=== PATIENT | female | born 1960 | race Caucasian/White ===

== ENCOUNTER 2022-08-01 16:32 | Outpatient (CLI) | payer OTHER, SELFPAY ==
[2022-08-01 10:30] LABS: Chloride* 105 mmol/L (96-114); Sodium* 142 mmol/L (135-149)
[2022-08-01 10:33] LABS: Creatinine* 0.6 mg/dL (0.5-1.5); Estimated Glomerular Filt Rate 100 ml/min
[2022-08-01 10:34] LABS: Blood Urea Nitrogen* 18 mg/dL (7-30); Calcium* 9.4 mg/dL (8.4-10.6); Carbon Dioxide* 30 mmol/L (20-32); Glucose* 87 mg/dL (60-115)
[2022-08-04 13:14] LABS: Lab Add On Test New Spec Needed
[2022-08-06 15:40] LABS: Cholesterol* 207 mg/dL (90-199)
[2022-08-06 15:41] LABS: HDL Cholesterol* 48 mg/dL (>=50); LDL Cholesterol Calculated 137 mg/dL (<100); Triglycerides* 109 mg/dL (40-149)
== END 2022-08-01 16:33 | disposition home or self-care (01) ==
PROVIDERS: PCP Family Medicine; Visit Provider Family Medicine
DX: Z13.0 Encounter for screening for diseases of the blood and blood-forming organs and certain disorders involving the immune mechanism (principal); Z13.6 Encounter for screening for cardiovascular disorders
CPT/HCPCS: 80048; 80061

== ENCOUNTER 2023-05-08 14:58 | Outpatient (CLI) | payer OTHER, SELFPAY ==
--- NOTE | 2023-05-08 15:20 | CRLHL7_ITS ---
For Patients: As a result of the Century Cures Act, medical imaging exams and procedure reports are released immediately into your electronic medical record. You may view this report before your referring provider. If you have questions, please contact your health care provider. BILATERAL SCREENING MAMMOGRAM WITH COMPUTER-AIDED DETECTION AND TOMOSYNTHESIS TECHNIQUE: CC and MLO views were obtained. These mammographic images have been obtained using full-field digital technique. These mammographic images were interpreted with the benefit of computer-aided detection. Breast Tomosynthesis was used in this interpretation. COMPARISON FILM: 10/24/21, 12/08/19, 12/06/18. FINDINGS: The breasts are heterogeneously dense, which may obscure small masses IMPRESSION: There is no radiographic evidence for malignancy. ASSESSMENT: BI-RADS Category 1: Negative RECOMMENDATION: Routine screening mammogram in 1 year. A lay language report of this examination will be provided to the patient. Bairon Scott M.D. Diagnostic Radiologist [email or web address] LISSA/Dictated by: Bairon Scott MD @ 05/09/2023 1:27:00 PM (Electronically Signed)
== END 2023-05-08 14:59 | disposition home or self-care (01) ==
LOC: MAMMO 14:59
PROVIDERS: PCP Family Medicine; Visit Provider Family Medicine
DX: Z12.31 Encounter for screening mammogram for malignant neoplasm of breast (principal); R92.2 Inconclusive mammogram
CPT/HCPCS: 77063; 77067

== ENCOUNTER 2023-08-14 10:12 | Outpatient (CLI) | payer MEDICARE, BC, SELFPAY | END 2023-08-14 10:13 | disposition home or self-care (01) | LOC: NFLDREF 13:13 | PROVIDERS: PCP Family Medicine; Referring Provider Family Medicine; Visit Provider Family Medicine | DX: R53.83 Other fatigue (principal); I10 Essential (primary) hypertension; E78.5 Hyperlipidemia, unspecified; Z13.0 Encounter for screening for diseases of the blood and blood-forming organs and certain disorders involving the immune mechanism | CPT/HCPCS: 80048; 80061 ==

== ENCOUNTER 2023-08-15 10:42 | Outpatient (CLI) | payer MEDICARE, BC, SELFPAY | END 2023-08-15 10:43 | disposition home or self-care (01) | LOC: NFLDREF 10:43 | PROVIDERS: PCP Family Medicine; Visit Provider Obstetrics & Gynecology | DX: R35.0 Frequency of micturition (principal) | CPT/HCPCS: 87086 ==

== ENCOUNTER 2023-09-14 11:06 | Emergency (ER) | payer MEDICARE, BC, SELFPAY ==
[2023-09-14 11:13] VITALS: BP 192/103; PULSE 77; RESP 18; TEMP 37.1; O2SAT 100; BMI 17.8
--- NOTE | 2023-09-14 11:23 | CRLHL7_ITS ---
For Patients: As a result of the Century Cures Act, medical imaging exams and procedure reports are released immediately into your electronic medical record. You may view this report before your referring provider. If you have questions, please contact your health care provider. Indication: Bruising and swelling. Technique: Four views of the right knee. Comparison: None Findings/Impression: No acute fracture or dislocation. Prepatellar soft tissue swelling is present. No significant joint effusion. Mild edema within the infrapatellar fat pad. Slight lateral patellar tilt. Dictated by Dario Mckeon MD @ 09/14/2023 12:09:33 PM (Electronically Signed)
--- NOTE | 2023-09-14 11:30 | ED.LOWEXIN ---
HPI - Extremity Injury (Lower) General Date Seen: 09/14/23 Chief Complaint: Extremity Pain/Injury, Lower Stated Complaint: R knee swelling, short of breath Time Seen by Provider: 09/14/23 11:18 Source: patient Mode of arrival: ambulatory Limitations: no limitations History of Present Illness HPI Narrative: Patient is a 63-year-old female with presenting to emergency department for swelling to her right knee. She states shortly prior to arrival she was standing in front of him your doing her makeup when she felt a weird sensation in her leg that went up to her knee. She then noticed her right knee was swollen and bruised. She has been able to walk around and the area is mildly tender to palpation but otherwise she no other pain noted. She has never had anything like this before denies any injuries to the knee. She is unsure what occurred. She does state when it 1st started she is feeling short of breath but that has since resolved. She states she believes the shortness of breath was from anxiety. Does states her right foot feels slightly numb but her toes and ankle feel normal. No other concerns noted at this time Related Data Home Medications Medication Instructions Recorded Confirmed calcium citrate 315 mg 2 tab PO .Daily as needed PRN 08/08/22 09/12/23 calcium-vitamin D3 6.25 mcg (250 unit) tablet cholecalciferol (vitamin D3) 25 100 mcg PO DAILY 08/08/22 09/12/23 mcg (1,000 unit) tablet Previous Rx's Medication Instructions Recorded atenolol 50 mg tablet 50 mg PO DAILY #90 tabs 08/08/23 nitrofurantoin macrocrystal 100 mg 100 mg PO BID #20 caps 08/08/23 capsule estradiol 0.01% (0.1 mg/gram) 0.5 g vaginal 2XW #42.5 grams 08/15/23 vaginal cream (Estrace) halobetasol propionate 0.05 % 1 applic topical .hs #15 grams 08/15/23 topical ointment Allergies Allergy/AdvReac Type Severity Reaction Status Date / Time amoxicillin Allergy Mild Hives Verified 09/12/23 08:02 erythromycin base Allergy Mild Hives Verified 09/12/23 08:02 Penicillins Allergy Mild Gastrointestinal Verified 09/12/23 08:02 Upset Tetracyclines Allergy Unknown Hives Verified 09/12/23 08:02 Sulfa drugs Allergy Mild Hives Uncoded 09/12/23 08:02 Review of Systems Narrative: Pertinent system reviewed and negative unless stated in HPI PFSH PFS Medical History (Updated 09/14/23 @ 14:09 by Mendoza David DO) History of peptic ulcer disease ?Z87.11 - Personal history of peptic ulcer disease (ICD-10) Surgical History (Updated 08/19/23 @ 15:57 by Deedee Galo MD) S/P shoulder surgery ?Z98.890 - Other specified postprocedural states (ICD-10) Status post appendectomy ?Z90.49 - Acquired absence of other specified parts of digestive tract (ICD-10) Status post ?Z98.891 - History of uterine scar from previous surgery (ICD-10) Family History (Updated 08/19/23 @ 15:57 by Deedee Galo MD) Other ASCVD (arteriosclerotic cardiovascular disease) Colon cancer Diabetes Heart disease High blood pressure High cholesterol Social History Smoking Status: Never smoker Little interest or pleasure in doing things: not at all Feeling down, depressed, or hopeless: not at all Exam Narrative: Exam Narrative: Const: Well-nourished, Well-developed, in mild distress Eyes: PERRL, no conjunctival injection, and symmetrical lids HENT: Atraumatic external nose and ears. Moist mucous membranes. Neck: Symmetric, trachea midline, No thyromegaly. CVS: RRR, No murmurs or gallops. Peripheral pulses 2+ and equal in all extremities RESP: Unlabored respiratory effort. Clear to auscultation bilaterally. GI: Nontender/Nondistended, No rebound or guarding. MSK: Swelling and bruising noted to right knee with mild tenderness, Normal Active ROM Skin: Warm, Dry. No rashes or lesions. Neuro: Normal Muscle tone, No focal neurological deficits. Psych: Awake, Alert, & Oriented x3. Appropriate mood and affect. Const: Vital Signs, click to edit/add: Vital Signs - 24 hr 09/14/23 11:13 Temperature 98.7 F Pulse Rate [Right Pulse Oximeter] 77 Respiratory Rate 18 Blood Pressure [Ri ght Upper Arm] 192/103 H Pulse Oximetry 100 Oxygen Delivery Me thod Room Air Course Vital Signs Vital signs: Initial Vital Signs Temperature 98.7 F 09/14/23 11:13 Temperature Source Temporal Artery Scan 09/14/23 11:13 Pulse Rate 77 09/14/23 11:13 Respiratory Rate 18 09/14/23 11:13 Blood Pressure 192/103 H 09/14/23 11:13 Blood Pressure Mean 132 H 09/14/23 11:13 Blood Pressure Position Sitting 09/14/23 11:13 Pulse Oximetry 100 09/14/23 11:13 Oxygen Delivery Method Room Air 09/14/23 11:13 Vital Signs Temperature 98.7 F 09/14/23 11:13 Pulse Rate 77 09/14/23 11:13 Respiratory Rate 18 09/14/23 11:13 Blood Pressure 192/103 H 09/14/23 11:13 Pulse Oximetry 100 09/14/23 11:13 Oxygen Delivery Method Room Air 09/14/23 11:13 Temperature 98.7 F 09/14/23 11:13 Pulse Rate 77 09/14/23 11:13 Respiratory Rate 18 09/14/23 11:13 Blood Pressure 192/103 H 09/14/23 11:13 Pulse Oximetry 100 09/14/23 11:13 Oxygen Delivery Method Room Air 09/14/23 11:13 MDM - Extremity Injury (Lower) MDM Narrative Medical decision making narrative: Patient is a 63-year-old female presenting for right knee swelling. Happened suddenly and she does not remember any trauma to the knee. She has full range of motion very minimal pain. Only has tenderness when I push on the distal aspect of the patella. At this time I do not believe she has a torn tendon. She has full range of motion so that seems unlikely. We will do x-ray of the knee which came back showing no concerning abnormalities. She was adamant that she is concerned this could be a blood clot and while explained her is very unlikely we will do the ultrasound to confirm. Ultrasound returned showing no signs of a blood clot. At this time I am not sure what caused this swelling but also does not appear infectious in nature as it is cool to the touch and not warm. She will be discharged home informed follow-up with orthopedics. She is agreeable to this plan Imaging Data Knee x-ray right: Radiologist's impression: No acute fracture or dislocation. Prepatellar soft tissue swelling is present. No significant joint effusion. Mild edema within the infrapatellar fat pad. Slight lateral patellar tilt. Dictated by Dario Mckeon MD @ 09/14/2023 12:09:33 PM Right lower extremity venous ultrasound: Radiologist's impression: Normal right lower extremity venous ultrasound, no sign of deep venous thrombosis. Dictated by Nathan Gutierres MD @ 09/14/2023 2:01:14 PM Discharge Plan Discharge Clinical Impression: Knee swelling Patient Disposition: Home, Self-Care Condition: Stable Instructions: Swollen Knee Joint (ED) Additional Instructions: If you develop any pain take Tylenol and ibuprofen. Return to emergency department for new or worsening symptoms. If you continues to have concerns I do recommend orthopedic follow-up. Prescriptions: No Action atenolol 50 mg tablet 50 mg PO DAILY Qty: 90 3RF nitrofurantoin macrocrystal 100 mg capsule 100 mg PO BID Qty: 20 2RF Rx Instructions: must administer with a meal/food calcium citrate-vitamin D3 315 mg-6.25 mcg (250 unit) tablet 2 tab PO .Daily as needed PRN cholecalciferol (vitamin D3) 25 mcg (1,000 unit) tablet 100 mcg PO DAILY halobetasol propionate 0.05 % ointment 1 applic topical .hs Qty: 15 1RF estradiol [Estrace] 0.01 % (0.1 mg/gram) cream 0.5 g vaginal 2XW Qty: 42.5 3RF Rx Instructions: Use nightly for 2 weeks, then twice weekly. May apply with finger. Follow Up/Referrals: Akshat Henning MD [Primary Care Provider] - Stand Alone Forms: [facility] Info Instructions
--- OUTSIDE RECORDS SUMMARY | 2023-09-14 11:44 | XMS_ITS | Encounter Summary ---
Author Name Unknown Organization [place] Address [address] [place] [address] Care Team Providers Care Driver Operator Name Role Phone Yogesh Ovalle MD Unavailable [phone] Marquis Henning MD Primary Care Provider [phone] Yogesh Ovalle MD Unavailable Reason for Visit * Reason Comments FU Cardiac testing 1 month follow-up, d iscuss test results * Consultation (Routine: Next available opening) - Pending Review Specialty Diagnoses / Procedures Referred By Jameson barrow Referred To Contact Cardiovascular Disease Diagnoses Coronary artery disease involving confederated coos coronary artery of confederated coos heart with other form of angina pectoris (H24) Family history of ischemic heart disease Yogesh Ovalle MD [address] [id number] Referral ID Status Reason Start Date Expiration Date V isits Requested Visits Authorized [id number] Pending Review 10/19/2022 10/19/2023 1 1 Encounter Details Date Type Department Care Team (Latest Contact Info) Description 11/20/2022 12:15 PM CDT Office Visit [facility] [address] [facility] [address] [place] [address] Yogesh Ovalle MD [address] [address] Mixed hyperlipidemia (Primary Dx); Coronary artery disease involving confederated coos coronary artery of confederated coos heart without angina pectoris; Family history of ischemic heart disease; Essential hypertension Social History Tobacco Use Types Packs/Day Years Used Date Smoking Tobacco: Never Tobacco Cessation:Counseling Given: Not Answered Alcohol Use Standard Drinks/Week Comments Not Currently 0 (1 standard drink = 0.6 oz pur e alcohol) PHQ-2 Answer Date Recorded PHQ-2 Score 0 10/19/2022 Sex and Gender Information Value Date Recorded Sex Assigned at Not on file Gender Identity Not on file Sexual Orientation Not on file COVID-19 Exposure Response Date Recorded In the last 10 days, have yo u been in contact with someone who was confirmed or suspected to have Coronavirus/COVID-19? No / Unsure 11/20/2022 12:37 PM CDT documented as of this encounter Last Filed Vital Signs Vital Sign Reading Time Taken Comments Blood Pressure 120/88 11/20/2022 12:38 PM CDT Pulse 55 11/20/2022 12:38 PM CDT Temperature - - Respiratory Rate - - Oxygen Saturation 98% 11/20/2022 12:38 PM CDT Inhaled Oxygen Concentration - - Weight - - Height 165.1 cm (5' 5) 11/20/2022 12:38 PM CDT Body Mass Index - - documented in this encounter Progress Notes * Yogesh Ovalle MD - 11/20/2022 12:15 PM CDT CARDIOLOGY CLINIC FOLLOW-UP NOTE REASON FOR VISIT: Chest pain, family history of CAD/CHF, follow-up recent testing PRIMARY CARE PHYSICIAN: Marquis Henning History of Present Illness Nichol Lowe is an extremely pleasant 62 year old female here for follow- up of her recent testing. I also see several of her other family members in clinic. Her past medical history is significant for only mild hypertension and dyslipidemia, though for many years she has struggled with paroxysmal nonexertional chest pain. Her family history is significant for her father having a heart attack at age 40 and undergoing multivessel CABG at age 45, as well as both of her paternal grandparents having heart disease. In addition, her younger brother was diagnosed with heart failure (apparently nonischemic) in his early 60s. Patient is a never smoker, though her relatives with heart disease were also not smokers. Patient does not drink alcohol or use illicit drugs. She is very active throughout the day and also exercises on the treadmill for 20-30 minutes most days of the week. As she described at her first visit, symptomatically, her biggest issue is left- sided chest discomfort which is generally not exertional in nature. The frequency of the chest pain waxes and wanes, going back several decades. Sometimes it gets so severe that she wonders if she should go into the hospital. She saw her primary care physician in August 2022 and at that time her lipid panel was slightly worse than before, and it was recommended that she start Crestor 5 mg daily. However, patient reported that she deals with chronic aches and pains particularly in her joints anyways, and she was worried about the potential side effects, so she had not started this yet. For work-up of her symptoms, and also given her family history, I had her do a TTE and coronary CTA. The TTE was done on 11/16/2022, and thankfully was essentially entirely normal. Her CCTA from 10/31/2022 showed a total calcium score of 3.32 (57th percentile for age and gender), with only very mild n onobstructive CAD and normal aortic size. Her most recent outside labs are from 08/01/2022, and show a hemoglobin of 12.8, normal electrolytes, normal renal function, total cholesterol 207, HDL 48, LDL 137, and triglycerides 109. Assessment & Plan 1. Atypical, primarily nonexertional chest pain: Noncardiac in nature 2. Trivial nonobstructive CAD (CAC = 3 in 10/2022, 10-year CHD risk of 3.9%) 3. Hypertension, well controlled 4. Mild dyslipidemia 5. Family history of premature CAD 6. Family history of nonischemic cardiomyopathy It was a pleasure to meet with Nichol again in clinic today. We discussed the results of her recent testing, which thankfully is very reassuring. Given this, I think it is reasonable to conclude that her current nonexertional symptoms are not related to her heart. In addition, despite her family history of both premature CAD and nonischemic cardiomyopathy, we do not see significant evidence of either condition on her recent testing. We did talk about the importance of prevention, particularly inregards to her coronary disease, and the potential role of aspirin and/or statin therapy. Using theMESA CAC 10-year risk prediction model, her calculated 10-year risk of CHD is 3.9%. Based on this, we talked about pros/cons of both aspirin and statin. Given that she has had severe difficulty tolerating even baby aspirin in the past from a GI standpoint, I would not recommend starting aspirin at this time. If her disease worsens in the future, we could perhaps consider Plavix monotherapy, but Iwould hold off on this for now. In regards to statin therapy, we talked about this in detail, and ultimately I recommended that she needs to do what she feels most comfortable with. Statin therapy would likely reduce her risk of coronary and cerebrovascular disease slightly over the next 10 years. That said, her 10-year risk is already fairly low despite her family history, and she is already deal ing with numerous aches and pains and has a hard time tolerating medication. Accordingly, I do not feel overly strongly that she needs to start a statin at this time. If she did wish to start one to minimize her risk is much as possible, I think that a low-dose of statin such as the 5 mg of Crestordaily as was recommended by her PCP would be a good choice, but again I would want her to feel comfortable with this decision as I think if she goes into this worried about side effects, it will increase her risk of in fact having those side effects. As for follow-up, I do not think that she requires any routine cardiology follow-up at this time, though I think that a repeat coronary calcium scanin roughly 5 years would probably be a good idea. On the date of the patient's visit, I spent a total of 45 minutes reviewing the patient's chart; interviewing, examining, and counseling the patient; coordinating with other providers as necessary, entering orders, and documenting in the medical chart. Yogesh Ovalle MD Interventional Cardiology November 20, 2022 Medications Current Outpatient Medications Medication ??? Ascorbic Acid (VITAMIN C PO) ??? atenolol (TENORMIN) 50 MG tablet ??? GZLIWLK-[id number]-[id number] D PO ??? cholecalciferol (VITAMIN D3) 25 mcg (1000 units) capsule ??? Fish Oil-Cholecalciferol (FISH OIL + D3 PO) ??? Lactobacillus (PROBIOTIC ACIDOPHILUS PO) ??? multivitamin w/minerals (THERA-VIT-M) tablet No current facility-administered medications for this visit. Allergies Allergies Allergen Reactions ??? Amoxicillin PCN is ok ??? Erythromycin ??? Sulfa Drugs ??? Ranitidine Rash Physical Exam BP: 120/88 Pulse: 55 SpO2: 98 % Vital Signs with Ranges Pulse: [55] 55 BP: (120)/(88) 120/88 SpO2: [98 %] 98 % 0 lbs 0 oz Constitutional: Well-appearing, no acute distress Respiratory: Normal respiratory effort, CTAB Cardiovascular: RRR, no m/r/g. JVP < 7 cm H2O. There is no LE edema. Normal carotid upstrokes, no carotid bruits. documented in this encounter Plan of Treatment Not on file documented as of this encounter Visit Diagnoses Diagnosis Mixed hyperlipidemia- Primary Coronary artery disease involving confederated coos coronary artery of confederated coos heart without angina pectoris Family history of ischemic heart disease Essential hypertension Unspecified essential hypertension documented in this encounter Additional Health Concerns Assessment Noted Time PHQ-9 Depression Total Score: 0 07/14/20 16 7:17 AM INTERACTIVE MEDIA DESIGNER documented as of this encounter Care Teams Driver Operator Relationship Specialty Start Date End Date Marquis Henning MD [facility] [address] [place] [address] PCP - General Family Medicine 10/03/22 Yogesh Ovalle MD [address] [address] Cardiovascular Disease 10/03/22 Yogesh Ovalle MD [address] [address] Assigned Heart and Vascular Provider 10/21/22 documented as of this encounter
--- OUTSIDE RECORDS SUMMARY | 2023-09-14 11:44 | XMS_ITS | Referral Summary ---
Author Name Unknown Organization [place] Address [address] [place] [address] Care Team Providers Care Field Geologist Name Role Phone Yogesh Ovalle MD Unavailable [phone] Marquis Henning MD Primary Care Provider Yogesh Ovalle MD Unavailable [phone] Allergies Active Allergy Reactions Criticality Noted Date Comments Amoxicillin 07/13/2016 PCN is ok Erythromycin 07/13/2016 Ranitidine Rash Low 07/13/2016 Sulfa Antibiotics 07/13/2016 Medications Medication Sig Dispensed Refills Start Date End Date Status atenolol (TENORMIN) 50 MG tablet Take 50 mg by mouth 0 05/24/2016 Active CREZXRW-ZAOFQRAMI-USZT MIN D PO 0 Active Ascorbic Acid (VITAMIN C PO) Only takes when taking Calcium/mg/vit D 0 Active Fish Oil-Cholecalciferol (FISH OIL + D3 PO) Once in a while 0 A ctive multivitamin w/minerals (THERA-VIT-M) tablet Take 1 tablet by mouth daily Every few days 0 Active cholecalciferol (VITAMIN D3) 25 mcg (1000 units) capsule Take 1 capsule by mouth daily 0 Active Lactobacillus (PROBIOTIC ACIDOPHILUS PO) 0 Active Active Problems No known active problems Social History Tobacco Use Types Packs/Day Years Used Date Smoking Tobacco: Never Tobacco Cessation:Counseling Given: Not Answered Alcohol Use Standard Drinks/Week Comments Not Currently 0 (1 standard drink = 0.6 oz pur e alcohol) PHQ-2 Answer Date Recorded PHQ-2 Score 0 10/19/2022 Adolescent Education Answer Date Record ed Getting School Help Needed Not on file 06/09 Sex and Gender Information Value Date Recorded Sex Assigned at Not on file Gender Identity Not on file Sexual Orientation Not on file Last Filed Vital Signs Vital Sign Reading Time Taken Comments Blood Pressure 120/88 11/20/2022 12:38 PM CDT Pulse 55 11/20/2022 12:38 PM CDT Temperature - - Respiratory Rate - - Oxygen Saturation 98% 11/20/2022 12:38 PM CDT Inhaled Oxygen Concentration - - Weight 49.7 kg (109 lb 9.6 oz) 10/19/2022 11:05 AM PROPERTY UNDERWRITER Height 165.1 cm (5' 5) 11/20/2022 12:38 PM CDT Body Mass Index 18.24 10/19/2022 11:05 AM PROPERTY UNDERWRITER Plan of Treatment Not on file Care Teams Field Geologist Relationship Specialty Start Date End Date Marquis Henning MD [facility] [address] [place] [address] PCP - General Family Medicine 10/03/22 Yogesh Ovalle MD [address] [address] Cardiovascular Disease 10/03/22 Yogesh Ovalle MD [address] [id number] Assigned Heart and Vascular Provider 10/21/22
--- OUTSIDE RECORDS SUMMARY | 2023-09-14 11:44 | XMS_ITS | Encounter Summary ---
Author Name Unknown Organization [place] Address [address] [place] [address] Care Team Providers Care General Forecaster Name Role Phone Yogesh Ovalle MD Unavailable [phone] Marquis Henning MD Primary Care Provider [phone] Yogesh Ovalle MD Unavailable [phone] Encounter Details Date Type Department Care Team (Latest Contact Info) Description 11/16/2022 Travel Social History Tobacco Use Types Packs/Day Years Used Date Smoking Tobacco: Never Alcohol Use Standard Drinks/Week Comments Not Currently [...] suspected to have Coronavirus/COVID-19? No / Unsure 11/16/2022 7:21 AM CDT documented as of this encounter Plan of Treatment Not on file documented as of this encounter Visit Diagnoses Not on filedocumented in this encounter Additional Health Concerns Assessment Noted Time PHQ-9 Depression Total Score: 0 07/14/20 16 7:17 AM CLINICAL LABORATORY MEDICAL DIRECTOR documented as of this encounter Care Teams General Forecaster Relationship Specialty Start Date End Date Marquis Henning MD [facility] [address] [place] [address] PCP - General Family Medicine 10/03/22 Yogesh Ovalle MD [address] [address] Cardiovascular Disease 10/03/22 Yogesh Ovalle MD [address] [address] Assigned Heart and Vascular Provider 10/21/22 documented as of this encounter
--- OUTSIDE RECORDS SUMMARY | 2023-09-14 11:44 | XMS_ITS | Clinical Summary ---
Author Name Unknown Organization [facility] Address [address] [place] [address] Care Team Providers Care Instrument Repairer Helper Name Role Phone Yogesh Ovalle MD Unavailable [phone] Marquis Henning MD Primary Care Provider [phone] Yogesh Ovalle MD Unavailable [phone] Allergies Active Allergy Reactions Criticality Noted Date Comments Amoxicillin 07/13/2016 PCN is ok Erythromycin 07/13/2016 Ranitidine Rash Low 07/13/2016 Sulfa Antibiotics 07/13/2016 Medications Medication Sig Dispensed Refills Start Date End Date Status atenolol (TENORMIN) 50 MG tablet Take 50 mg by mouth 0 05/24/2016 Active ZXFENEK-[id number]-ENHF MIN D PO 0 Active Ascorbic Acid [...] Active Active Problems No known active problems Family History Medical History Relation Comments Diabetes Brother Hypertension Father Breast Cancer Maternal Aunt Colon Cancer Maternal Aunt Diabetes Maternal Aunt Diabetes Mother Hypertension Mother Colon Cancer Sister Diabetes Sister Relation Status Comments Brother Father Maternal Aunt Mother Sister Social History Tobacco Use Types Packs/Day Years [...] (109 lb 9.6 oz) 10/19/2022 11:05 AM DIGITAL ACCOUNT SUPERVISOR Height 165.1 cm (5' 5) 11/20/2022 12:38 PM CDT Body Mass Index 18.24 10/19/2022 11:05 AM DIGITAL ACCOUNT SUPERVISOR Plan of Treatment Health Maintenance Due Date Last Done Comments ADVANCE CARE PLANNING 1960 ANNUAL REVIEW OF HM ORDERS 1958 CT COLONOGRAPHY 1958 DEXA 1958 FIT 1958 FLEX SIG 1958 sDNA (Cologuard) 1958 Pneumococcal Vaccine: 65+ Years (1 of 2 - PCV) 1964 HIV SCREENING 1973 HEPATITIS C SCREENING 1976 ZOSTER IMMUNIZATION (1 of 2) 2008 MAMMO SCREENING 09/03/2016 09/03/2014 RSV VACCINE ( & 60+) (1 - 1-dose 60+ series) 2018 DTAP/TDAP/TD IMMUNIZATION (1 - Tdap) 08/09/2022 08/08/2022 COVID-19 Vaccine (3 - 2022- season) 2023 07/06/2021, 11/08/2020 INFLUENZA VACCINE (#1) 2023 FALL RISK ASSESSMENT 2023 MEDICARE ANNUAL WELLNESS VISIT 2023 07/13/2016 PHQ-2 (once per calendar year) 2023 10/19/2022, 07/13/2016 COLONOSCOPY 07/04/2026 07/04/2016 COLORECTAL CANCER SCREENING 07/04/2026 LIPID 08/01/2027 08/01/2022 PAP Discontinued 07/13/2016, 09/03/2013 HPV IMMUNIZATION Aged Out No longer e ligible based on patient's age to complete this topic IPV IMMUNIZATION Aged Out No longer e ligible based on patient's age to complete this topic MENINGITIS IMMUNIZATION Aged Out No l onger eligible based on patient's age to complete this topic RSV MONOCLONAL ANTIBODY Aged Out No l onger eligible based on patient's age to complete this topic Care Teams Instrument Repairer Helper Relationship Specialty Start Date End Date Marquis Henning MD [facility] [address] [place] [address] PCP - General Family Medicine 10/03/22 Yogesh Ovalle MD [address] [id number] Cardiovascular Disease 10/03/22 Yogesh Ovalle MD [address] [address] Assigned Heart and Vascular Provider 10/21/22
--- OUTSIDE RECORDS SUMMARY | 2023-09-14 11:44 | XMS_ITS | Encounter Summary ---
Author Name Unknown Organization [place] Address [address] [place] [address] Care Team Providers Care Play Back Operator Name Role Phone Yogesh Ovalle MD Unavailable [phone] Marquis Henning MD Primary Care Provider [phone] Yogesh Ovalle MD Unavailable [phone] Encounter Details Date Type Department Care Team (Latest Contact Info) Description 11/20/2022 Travel Social History Tobacco Use Types Packs/Day [...] PM CDT documented as of this encounter Plan of Treatment Not on file documented as of this encounter Visit Diagnoses Not on filedocumented in this encounter Additional Health Concerns Assessment Noted Time PHQ-9 Depression Total Score: 0 07/14/20 16 7:17 AM NAME PLATE STAMPER documented as of this encounter Care Teams Play Back Operator Relationship Specialty Start Date End Date Marquis Henning MD [facility] [address] [place] [address] PCP - General Family Medicine 10/03/22 Yogesh Ovalle MD [address] [address] Cardiovascular Disease 10/03/22 Yogesh Ovalle MD [address] [address] Assigned Heart and Vascular Provider 10/21/22 documented as of this encounter
--- OUTSIDE RECORDS SUMMARY | 2023-09-14 11:45 | XMS_ITS | Encounter Summary ---
Author Name Unknown Organization [facility] Address [address] [place] [address] Care Team Providers Care Registered Associate Name Role Phone Yogesh Ovalle MD Unavailable [phone] Marquis Henning MD Primary Care Provider [phone] Yogesh Ovalle MD Unavailable [phone] Encounter Details Date Type Department Care Team (Latest Contact Info) Description 10/31/2022 Travel Social History Tobacco Use Types Packs/Day [...] suspected to have Coronavirus/COVID-19? No / Unsure 10/31/2022 9:57 AM SOLE ROUNDER documented as of this encounter Plan of Treatment Not on file documented as of this encounter Visit Diagnoses Not on filedocumented in this encounter Additional Health Concerns Assessment Noted Time PHQ-9 Depression Total Score: 0 07/14/20 16 7:17 AM SOLE ROUNDER documented as of this encounter Care Teams Registered Associate Relationship Specialty Start Date End Date Marquis Henning MD [facility] [address] [place] [address] PCP - General Family Medicine 10/03/22 Yogesh Ovalle MD [address] [address] Cardiovascular Disease 10/03/22 Yogesh Ovalle MD [address] [address] Assigned Heart and Vascular Provider 10/21/22 documented as of this encounter
--- OUTSIDE RECORDS SUMMARY | 2023-09-14 11:45 | XMS_ITS | Encounter Summary ---
Author Name Unknown Organization [facility] Address [address] [place] [address] Care Team Providers Care Buck Presser Name Role Phone Yogesh Ovalle MD Unavailable [phone] Marquis Henning MD Primary Care Provider [phone] Yogesh Ovalle MD Unavailable Reason for Referral * Diagnostic Imaging XR (Routine) - Pending Review Specialty Diagnoses / Procedures Referred By Jameson barrow Referred To Contact Radiology. 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) Family history of ischemic heart disease Procedures CTA Angiogram coronary artery Yogesh Ovalle MD [address] [address] Referral ID Status Reason Start Date Expiration Date Visits Re quested Visits Authorized [id number] Closed 10/19/2022 10/19/2023 1 1 Encounter Details Date Type Department Care Team (Latest Contact Info) Description 10/31/2022 9:57 AM MILL SET UP - 10/31/2022 11:59 PM MILL SET UP Hospital Encounter [facility] [address] [place] [id number] Yogesh Ovalle MD [address] [address] Coronary artery disease involving [place] coronary artery of [place] heart with other form of angina pectoris (H); Family history of ischemic heart disease Discharge Disposition: Home or Self Care Social History Tobacco Use Types Packs/Day Years [...] Coronavirus/COVID-19? No / Unsure 10/31/2022 9:57 AM MILL SET UP documented as of this encounter Last Filed Vital Signs Vital Sign Reading Time Taken Comments Blood Pressure 177/92 10/31/2022 10:05 AM MILL SET UP Pulse 57 10/31/2022 10:05 AM MILL SET UP Temperature - - Respiratory Rate - - Oxygen Saturation - - Inhaled Oxygen Concentration - - Weight - - Height - - Body Mass Index - - documented in this encounter Medications at Time of Discharge Medication Sig Dispensed Refills Start Date End Date Ascorbic Acid (VITAMIN C PO) Only takes when taking Calcium/mg/vit D 0 atenolol (TENORMIN) 50 MG tablet Take 50 mg by mouth 0 05/24/2016 ELCRBWK-[id number]-OJZEANL D PO 0 cholecalciferol (VITAMIN D3) 25 mcg (1000 units) capsule Take 1 capsule by mouth daily 0 Fish Oil-Cholecalciferol (FISH OIL + D3 PO) Once in a while 0 Lactobacillus (PROBIOTIC ACIDOPHILUS PO) 0 multivitamin w/minerals (THERA-VIT-M) tablet Take 1 tablet by mouth daily Every few days 0 documented as of this encounter Plan of Treatment Scheduled Orders Name Type Priority Associated Diagnoses Orde r Schedule EKG 12-lead, tracing only EKG STAT One Time for 1 O ccurrences starting 10/31/2022 until 10/31/2022 documented as of this encounter Procedures Procedure Name Priority Date/Time Associated Diagnosis Comments CTA ANGIOGRAM CORONARY ARTERY Routine 10/31/2022 12:37 PM MILL SET UP Coronary artery disease involving [place] coronary artery of [place] heart with other form of angina pectoris (H) Family history of ischemic heart disease RADIOLOGIST CONSULT FOR CARDIOLOGY Routine 10/31/2022 12:37 PM MILL SET UP Coronary artery disease involving [place] coronary artery of [place] heart with other form of angina pectoris (H) Family history of ischemic heart disease documented in this encounter Results * Radiologist Consult For Cardiology (10/31/2022 12:37 PM MILL SET UP) Anatomical Region Laterality Modality Computed Tomogra phy Impressions 10/31/2022 3:52 PM MILL SET UP IMPRESSION: No significant extracardiac findings. ANTIONE MORTON MD Narrative 10/31/2022 3:52 PM MILL SET UP RADIOLOGIST CONSULT FOR CARDIOLOGY 10/31/2022 12:37 PM HISTORY: Coronary artery disease involving [place] coronary artery of [place] heart with other form of angina pectoris (H); Family history of ischemic heart disease. COMPARISON: None. Procedure Note Antione Morton MD - 10/31/2022 RADIOLOGIST CONSULT FOR CARDIOLOGY 10/31/2022 12:37 PM HISTORY: Coronary artery disease involving [place] coronary artery of [place] heart with other form of angina pectoris (H); Family history of ischemic heart disease. COMPARISON: None. IMPRESSION: No significant extracardiac findings. ANTIONE MORTON MD Yogesh Ovalle MD IM DIAGNOSTIC IMAGING ORDERABLES * CTA Angiogram coronary artery (10/31/2022 12:37 PM MILL SET UP) Anatomical Region Laterality Modality Cardio, SUBRAD CT BODY, UMP CT CHEST, RAD CT Computed Tomography Impressions 10/31/2022 2:32 PM MILL SET UP IMPRESSION: 1. Total Agatston score 3.32, placing the patient in the 57th percentile when compared to age and gender matched control group. 2. Very mild nonobstructive coronary artery disease 3. ??Please review Radiology report for incidental noncardiac findings that will follow separately. FINDINGS: CORONARY CALCIUM SCORE: The total Agatston calcium score is 3.32, Left main: 0, left anterior descendin.32, ??circumflex: 0, right coronary artery: 0. This places the patient in the 57th percentile when compared to age and gender matched control group. CORONARY CT ANGIOGRAPHY DOMINANCE: Right dominant system. LEFT MAIN: The left main arises normally from the left coronary cusp and is widely patent without any stenosis or plaque. LEFT ANTERIOR DESCENDING: . A small vessel, The left anterior descending and its major diagonal branches are patent. There is mild calcification mid vessel CIRCUMFLEX: Small vessel, The circumflex and its major branches are widely patent without any detectable stenosis or plaque. RIGHT CORONARY ARTERY: Large vessel, The right coronary artery and its major branches are widely patent without any detectable stenosis or plaque. ADDITIONAL FINDINGS: The proximal ascending aorta is normal in size. Normal pulmonary venous anatomy with all four pulmonary veins draining into the left atrium. ?? There is no left ventricular mass or thrombus. Normal pericardial thickness. There is no pericardial effusion. The proximal pulmonary arteries are well opacified. Please review Radiology report for incidental noncardiac findings that will follow separately. REGINALDO BUSBY MD Narrative 10/31/2022 2:32 PM MILL SET UP Procedure: CT ANGIO CORONARY ARTERY Examination Date: Indication: ??Chest pain. Clinical Information: chest pain, abnormal stress echo Ordering Physician: Dr Joe Ovalle Overall quality of the study: Adequate. PROCEDURE:The patient was positioned in the scanner gantry and an IV was started using an 18 gauge IV in the right antecubital fossa. Utilizing 100 cc ??Isovue 370, wasted 0 cc, multi-slice computed tomography was performed with a Siemens Dual Source Flash scanner without incident. Beta-blockers were required to optimize heart rate, patient was given Metoprolol 0 mg Oral, Metoprolol 0 mg ??IV. The patient was given pre-medication of sublingual Nitrostat 0.4 mg prior to scanning. Coronary artery calcium score was performed using the Flash scanner protocol. CTA was performed in the sequential mode at a heart rate of 65 bpm with 100 kVp. Images were reconstructed and analyzed on a [email or web address] workstation. Scan protocol was optimized to minimize radiation exposure. The total radiation exposure including calcium score was calculated to be 74 DLP, and 1.48 mSv. Procedure Note Reginaldo Busby MD - 10/31/2022 Procedure: CT ANGIO CORONARY ARTERY Examination Date: Indication: Chest pain. Clinical Information: chest pain, abnormal stress echo Ordering Physician: Dr Joe Ovalle Overall quality of the study: Adequate. PROCEDURE:The patient was positioned in the scanner gantry and an IV was started using an 18 gauge IV in the right antecubital fossa. Utilizing 100 cc Isovue 370, wasted 0 cc, multi-slice computed tomography was performed with a Siemens Dual Source Flash scanner without incident. Beta-blockers were required to optimize heart rate, patient was given Metoprolol 0 mg Oral, Metoprolol 0 mg IV. The patient was given pre-medication of sublingual Nitrostat 0.4 mg prior to scanning. Coronary artery calcium score was performed using the Flash scanner protocol. CTA was performed in the sequential mode at a heart rate of 65 bpm with 100 kVp. Images were reconstructed and analyzed on a [email or web address] workstation. Scan protocol was optimized to minimize radiation exposure. The total radiation exposure including calcium score was calculated to be 74 DLP, and 1.48 mSv. IMPRESSION: 1. Total Agatston score 3.32, placing the patient in the 57th percentile when compared to age and gender matched control group. 2. Very mild nonobstructive coronary artery disease 3. Please review Radiology report for incidental noncardiac findings that will follow separately. FINDINGS: CORONARY CALCIUM SCORE: The total Agatston calcium score is 3.32, Left main: 0, left anterior descendin.32, circumflex: 0, right coronary artery: 0. This places the patient in the 57th percentile when compared to age and gender matched control group. CORONARY CT ANGIOGRAPHY DOMINANCE: Right dominant system. LEFT MAIN: The left main arises normally from the left coronary cusp and is widely patent without any stenosis or plaque. LEFT ANTERIOR DESCENDING: . A small vessel, The left anterior descending and its major diagonal branches are patent. There is mild calcification mid vessel CIRCUMFLEX: Small vessel, The circumflex and its major branches are widely patent without any detectable stenosis or plaque. RIGHT CORONARY ARTERY: Large vessel, The right coronary artery and its major branches are widely patent without any detectable stenosis or plaque. ADDITIONAL FINDINGS: The proximal ascending aorta is normal in size. Normal pulmonary venous anatomy with all four pulmonary veins draining into the left atrium. There is no left ventricular mass or thrombus. Normal pericardial thickness. There is no pericardial effusion. The proximal pulmonary arteries are well opacified. Please review Radiology report for incidental noncardiac findings that will follow separately. 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 As verbally ordered by the provider., Starting on Sun10/31/22 at 0812, For 2 doses, If there is a delay in the procedure, administer a second dose if necessary 15 minutes after the initial dose IF directed by the provider prior to the start of the exam. Hold for systolic blood pressure less than 90 mmHg - notify provider. Notify provider prior to giving medication if patient has a history of severe aortic stenosis., Cardiac Intra-procedure $Given 10/31/2022 11:44 AM MILL SET UP 0.4 mg sodium chloride (PF) 0.9% PF flush 40-100 mL 40-100 mL, Intravenous, ONCE, On Sun10/31/22 at 1130, For 1 dose $Given 10/31/2022 11:55 AM MILL SET UP 100 mLs documented in this encounter Additional Health Concerns Assessment Noted Time PHQ-9 Depression Total Score: 0 07/14/20 16 7:17 AM MILL SET UP documented as of this encounter Care Teams Buck Presser Relationship Specialty Start Date End Date Marquis Henning MD [facility] [address] [place] [address] PCP - General Family Medicine 10/03/22 Yogesh Ovalle MD [address] [address] Cardiovascular Disease 10/03/22 Yogesh Ovalle MD [address] [address] Assigned Heart and Vascular Provider 10/21/22 documented as of this encounter
--- OUTSIDE RECORDS SUMMARY | 2023-09-14 11:45 | XMS_ITS | Encounter Summary ---
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) Family history of ischemic heart disease Procedures Echocardiogram Complete ZZHC TTE W/DOPPLER, COMPLETE ZZHC ECHO COMPLETE W DOPPLER W CONTRAST ZZHC ECHO COMPLETE W DOPPLER W/O CONTRAST ZZHC IV PUSH SINGLE, INITIAL SUBSTANCE ZZHC US GUIDE FOR PERICARDIOCENTESIS ZZHC ECHO MYOCARD BX ZZC INJECTION, PERFLUTREN LIPID MICROSPHERES, PER ML ZZHC STATISTIC IV PUSH SINGLE INITIAL SUBSTANCE NC ECHO MYOCARD BX NC INJECTION, PERFLUTREN LIPID MICROSPHERES, PER ML NC TTE W/DOPPLER, COMPLETE NC IV PUSH SINGLE, INITIAL SUBSTANCE NC TTE W/DOPPLER, COMPLETE NC TTE W/DOPPLER, COMPLETE HC US GUIDE FOR PERICARDIOCENTESIS HC ECHO MYOCARD BX HC IV PUSH SINGLE, INITIAL SUBSTANCE HC STATISTIC IV PUSH SINGLE INITIAL SUBSTANCE HC ECHO COMPLETE W DOPPLER W CONTRAST HC ECHO COMPLETE W DOPPLER W/O CONTRAST Yogesh Ovalle MD [address] [place] [address] Referral ID Status Reason Start Date Expiration Date Visits Re quested Visits Authorized [id number] Closed 10/19/2022 10/19/2023 1 1 Reason for Visit * CV Testing (Routine) - Closed Specialty Diagnoses / Procedures Referred By Contac t Referred To Contact Diagnoses 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) Family history of ischemic heart disease Procedures Echocardiogram Complete ZZHC TTE W/DOPPLER, COMPLETE ZZHC ECHO COMPLETE W DOPPLER W CONTRAST ZZHC ECHO COMPLETE W DOPPLER W/O CONTRAST ZZHC IV PUSH SINGLE, INITIAL SUBSTANCE ZZHC US GUIDE FOR PERICARDIOCENTESIS ZZHC ECHO MYOCARD BX ZZC INJECTION, PERFLUTREN LIPID MICROSPHERES, PER ML ZZHC STATISTIC IV PUSH SINGLE INITIAL SUBSTANCE NC ECHO MYOCARD BX NC INJECTION, PERFLUTREN LIPID MICROSPHERES, PER ML NC TTE W/DOPPLER, COMPLETE NC IV PUSH SINGLE, INITIAL SUBSTANCE NC TTE W/DOPPLER, COMPLETE NC TTE W/DOPPLER, COMPLETE HC US GUIDE FOR PERICARDIOCENTESIS HC ECHO MYOCARD BX HC IV PUSH SINGLE, INITIAL SUBSTANCE HC STATISTIC IV PUSH SINGLE INITIAL SUBSTANCE HC ECHO COMPLETE W DOPPLER W CONTRAST HC ECHO COMPLETE W DOPPLER W/O CONTRAST Yogesh Ovalle MD [address] [id number] Referral ID Status Reason Start Date Expiration Date Visits Re quested Visits Authorized [id number] Closed 10/19/2022 10/19/2023 1 1 Encounter Details Date Type Department Care Team (Latest Contact Info) Description 11/16/2022 7:22 AM CDT - 11/16/2022 11:59 PM CDT Hospital Encounter [facility] [address] [facility] [address] [place] [address] Yogesh Ovalle MD [address] [address] 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 [...] AM CDT documented as of this encounter Medications at Time of Discharge Medication Sig Dispensed Refills Start Date End Date Ascorbic Acid (VITAMIN C PO) Only takes when taking Calcium/mg/vit D 0 atenolol (TENORMIN) 50 MG tablet Take 50 mg by mouth 0 05/24/2016 [id number] D PO 0 cholecalciferol (VITAMIN D3) 25 [...] on file documented as of this encounter Procedures Procedure Name Priority Date/Time Associated Diagnosis Comments ECHO COMPLETE Routine 11/16/2022 8:02 AM CDT 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 (H) Family history of ischemic heart disease documented in this encounter Results * ECHO COMPLETE (11/16/2022 8:02 AM CDT) LVEF 55-60% CARDIOLOGY RESULTS Anatomical Region Laterality Modality Echocardiography 11/16/2022 6:33 AM CDT Narrative 11/16/2022 9:28 AM CDT [id number]^YVROSE^YOGESH^[facility] Echocardiography Laboratory [address] [place] [address] Name: NICHOL LOWE : 1960 Study Date: 11/16/2022 06:33 AM Age: 62 yrs Gender: Female Patient Location: [facility] Reason For Study: Coronary artery disease involving seneca coronary artery Ordering Physician: YOGESH OVALLE Referring Physician: YOGESH OVALLE Performed By: [facility] Mary Sorto BSA: 1.5 m2 Height: 65 in Weight: 109 lb BP: 170/94 mmHg Procedure Complete Echo Adult. Interpretation Summary 1. The left ventricle is normal in size. There is normal left ventricular wall thickness. Left ventricular systolic function is normal. The visual ejection fraction is 55-60%. Diastolic Doppler findings (E/E' ratio and/or other parameters) suggest left ventricular filling pressures are indeterminate. No regional wall motion abnormalities noted. 2. The right ventricle is normal size. The right ventricular systolic function is normal. 3. Trace mitral and tricuspid regurgitation. 4. No pericardial effusion. 5. No previous study for comparison. Left Ventricle The left ventricle is normal in size. There is normal left ventricular wall thickness. Left ventricular systolic function is normal. The visual ejection fraction is 55-60%. Diastolic Doppler findings (E/E' ratio and/or other parameters) suggest left ventricular filling pressures are indeterminate. No regional wall motion abnormalities noted. Right Ventricle The right ventricle is normal size. The right ventricular systolic function is normal. Atria Normal left atrial size. Right atrial size is normal. There is no color Doppler evidence of an atrial shunt. Mitral Valve There is trace mitral regurgitation. Tricuspid Valve There is trace tricuspid regurgitation. Right ventricular systolic pressure could not be approximated due to inadequate tricuspid regurgitation. Aortic Valve There is mild trileaflet aortic sclerosis. There is trace aortic regurgitation. No aortic stenosis is present. Pulmonic Valve There is trace pulmonic valvular regurgitation. There is no pulmonic valvular stenosis. Vessels The aortic root is normal size. Normal size ascending aorta. Descending aortic velocity normal. Dilation of the inferior vena cava is present with normal respiratory variation in diameter. Pericardium There is no pericardial effusion. Rhythm Sinus rhythm was noted. MMode/2D Measurements & Calculations IVSd: 0.72 cm LVIDd: 4.8 cm LVIDs: 3.5 cm LVPWd: 0.75 cm FS: 25.5 % LV mass(C)d: 111.6 grams LV mass(C)dI: 73.0 grams/m2 Ao root diam: 2.9 cm asc Aorta Diam: 3.0 cm LVOT diam: 2.1 cm LVOT area: 3.4 cm2 LA Volume (BP): 39.7 ml LA Volume Index (BP): 25.9 ml/m2 RWT: 0.32 TAPSE: 2.1 cm Doppler Measurements & Calculations MV E max joey: 80.9 cm/sec MV A max joey: 82.1 cm/sec MV E/A: 0.99 MV max P.0 mmHg MV mean P.5 mmHg MV V2 VTI: 32.4 cm MV dec time: 0.23 sec PA V2 max: 80.1 cm/sec PA max P.6 mmHg PA acc time: 0.14 sec E/E' av.7 Lateral E/e': 8.4 Medial E/e': 11.1 RV S Joey: 12.8 cm/sec Report approved by: Marcela Mariee 11/16/2022 09:28 AM Procedure Note Cedric Faith MD - 11/16/2022 [id number]^YVROSE^YOGESH^[facility] Echocardiography Laboratory [address] [place] [id number] Name: NICHOL LOWE : 1960 Study Date: 11/16/2022 06:33 AM Age: 62 yrs Gender: Female Patient Location: [facility] Reason For Study: Coronary artery disease involving seneca coronaryartery Ordering Physician: YOGESH OVALLE Referring Physician: YOGESH OVALLE Performed By: TANVI Sorto BSA: 1.5 m2 Height: 65 in Weight: 109 lb BP: 170/94 mmHg Procedure Complete Echo Adult. Interpretation Summary 1. The left ventricle is normal in size. There is normal left ventricularwall thickness. Left ventricular systolic function is normal. The visualejection fraction is 55-60%. Diastolic Doppler findings (E/E' ratio and/or other parameters) suggest left ventricular filling pressures are indeterminate.No regional wall motion abnormalities noted. 2. The right ventricle is normal size. The right ventricular systolicfunction is normal. 3. Trace mitral and tricuspid regurgitation. 4. No pericardial effusion. 5. No previous study for comparison. Left Ventricle The left ventricle is normal in size. There is normal left ventricularwall thickness. Left ventricular systolic function is normal. The visualejection fraction is 55-60%. Diastolic Doppler findings (E/E' ratio and/or other parameters) suggest left ventricular filling pressures are indeterminate.No regional wall motion abnormalities noted. Right Ventricle The right ventricle is normal size. The right ventricular systolicfunction is normal. Atria Normal left atrial size. Right atrial size is normal. There is no color Doppler evidence of an atrial shunt. Mitral Valve There is trace mitral regurgitation. Tricuspid Valve There is trace tricuspid regurgitation. Right ventricular systolicpressure could not be approximated due to inadequate tricuspid regurgitation. Aortic Valve There is mild trileaflet aortic sclerosis. There is trace aortic regurgitation. No aortic stenosis is present. Pulmonic Valve There is trace pulmonic valvular regurgitation. There is no pulmonicvalvular stenosis. Vessels The aortic root is normal size. Normal size ascending aorta. Descendingaortic velocity normal. Dilation of the inferior vena cava is present withnormal respiratory variation in diameter. Pericardium There is no pericardial effusion. Rhythm Sinus rhythm was noted. MMode/2D Measurements & Calculations IVSd: 0.72 cm LVIDd: 4.8 cm LVIDs: 3.5 cm LVPWd: 0.75 cm FS: 25.5 % LV mass(C)d: 111.6 grams LV mass(C)dI: 73.0 grams/m2 Ao root diam: 2.9 cm asc Aorta Diam: 3.0 cm LVOT diam: 2.1 cm LVOT area: 3.4 cm2 LA Volume (BP): 39.7 ml LA Volume Index (BP): 25.9 ml/m2 RWT: 0.32 TAPSE: 2.1 cm Doppler Measurements & Calculations MV E max joey: 80.9 cm/sec MV A max joey: 82.1 cm/sec MV E/A: 0.99 MV max P.0 mmHg MV mean P.5 mmHg MV V2 VTI: 32.4 cm MV dec time: 0.23 sec PA V2 max: 80.1 cm/sec PA max P.6 mmHg PA acc time: 0.14 sec E/E' av.7 Lateral E/e': 8.4 Medial E/e': 11.1 RV S Joey: 12.8 cm/sec Report approved by: Marcela Mariee 11/16/2022 09:28 AM Yogesh Ovalle MD CV ECHO ORDERAB LES documented in this encounter Visit Diagnoses Diagnosis 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) Family history of ischemic heart disease documented in this encounter Additional Health Concerns Assessment Noted Time PHQ-9 Depression Total Score: 0 07/14/20 16 7:17 AM APPLICATIONS PROCESSOR documented as of this encounter Care Teams Facility Service Manager Relationship Specialty Start Date End Date Marquis Henning MD [facility] [address] [place] [address] PCP - General Family Medicine 10/03/22 Yogesh Ovalle MD [address] [id number] Cardiovascular Disease 10/03/22 Yogesh Ovalle MD [address] [id number] Assigned Heart and Vascular Provider 10/21/22 documented as of this encounter
--- OUTSIDE RECORDS SUMMARY | 2023-09-14 11:45 | XMS_ITS | Encounter Summary ---
Author Name Unknown Organization [place] Address [facility] [place] [address] Care Team Providers Care Home Office Claims Examiner Name Role Phone Yogesh Ovalle MD Unavailable [phone] Marquis Henning MD Primary Care Provider [phone] Encounter Details Date Type Department Care Team (Latest Contact Info) Description 10/19/2022 Travel Social History Tobacco Use Types Packs/Day [...] suspected to have Coronavirus/COVID-19? No / Unsure 10/19/2022 11:00 AM TECHNOLOGY TRAINER documented as of this encounter Plan of Treatment Not on file documented as of this encounter Visit Diagnoses Not on filedocumented in this encounter Additional Health Concerns Assessment Noted Time PHQ-9 Depression Total Score: 0 07/14/20 16 7:17 AM TECHNOLOGY TRAINER documented as of this encounter Care Teams Home Office Claims Examiner Relationship Specialty Start Date End Date Marquis Henning MD [facility] [address] [facility] [place] [address] PCP - General Family Medicine 10/03/22 Yogesh Ovalle MD [address] [address] Cardiovascular Disease 10/03/22 documented as of this encounter
--- OUTSIDE RECORDS SUMMARY | 2023-09-14 11:45 | XMS_ITS | Encounter Summary ---
Author Name Unknown Organization [facility] Address [address] [place] [id number] Care Team Providers Care Pool Hall Inspector Name Role Phone Yogesh Ovalle MD Unavailable [phone] Marquis Heninng MD Primary Care Provider [phone] Reason for Referral * Diagnostic Imaging CT Scan (Routine) - Closed Specialty Diagnoses / Procedures Referred By Jameson barrow Referred To Contact Radiology. 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 (H24) Family history of ischemic heart disease Procedures CTA Angiogram coronary artery Yogesh Ovalle MD [address] [place] [address] Referral ID Status Reason Start Date Expiration Date Visits Re quested Visits Authorized [id number] Closed 10/19/2022 10/19/2023 1 1 UNTING ADVISORY SERVICES MANAGER * CV Testing (Routine) - Closed Specialty Diagnoses / Procedures Referred By Contac t Referred To Contact 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 [...] ZZHC STATISTIC IV PUSH SINGLE INITIAL SUBSTANCE MI ECHO MYOCARD BX MI INJECTION, PERFLUTREN LIPID MICROSPHERES, PER ML MI TTE W/DOPPLER, COMPLETE MI IV PUSH SINGLE, INITIAL SUBSTANCE MI TTE W/DOPPLER, COMPLETE MI TTE W/DOPPLER, COMPLETE HC US GUIDE FOR PERICARDIOCENTESIS HC ECHO MYOCARD BX HC IV PUSH SINGLE, INITIAL SUBSTANCE HC STATISTIC IV PUSH SINGLE INITIAL SUBSTANCE HC ECHO COMPLETE W DOPPLER W CONTRAST HC ECHO COMPLETE W DOPPLER W/O CONTRAST Yogesh Ovalle MD [address] [place] [place] [address] Referral ID Status Reason Start Date Expiration Date Visits Re quested Visits Authorized [id number] Closed 10/19/2022 10/19/2023 1 1 UNTING ADVISORY SERVICES MANAGER * Consultation (Routine: Next available opening) - Pending Review Specialty Diagnoses / Procedures Referred By Jameson t Referred To Contact Cardiovascular Disease 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 If you have concerns about scheduling, please call [phone]. Comments [facility] will call you to coordinate your care as prescribed by your provider. If you have concerns about scheduling, please call [phone]. 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 No / Unsure 10/19/2022 11:00 AM ACCOUNTING ADVISORY SERVICES MANAGER documented as of this encounter Last Filed Vital Signs Vital Sign Reading Time Taken Comments Blood Pressure 150/88 10/19/2022 11:05 AM ACCOUNTING ADVISORY SERVICES MANAGER Pulse 58 10/19/2022 11:05 AM ACCOUNTING ADVISORY SERVICES MANAGER Temperature - - Respiratory Rate - - Oxygen Saturation 99% 10/19/2022 11:05 AM ACCOUNTING ADVISORY SERVICES MANAGER Inhaled Oxygen Concentration - - Weight 49.7 kg (109 lb 9.6 oz) 10/19/2022 11:05 AM ACCOUNTING ADVISORY SERVICES MANAGER Height 165.1 cm (5' 5) 10/19/2022 11:05 AM ACCOUNTING ADVISORY SERVICES MANAGER Body Mass Index 18.24 10/19/2022 11:05 AM ACCOUNTING ADVISORY SERVICES MANAGER documented in this encounter Progress Notes * Yogesh Ovalle MD - 10/19/2022 11:15 AM CST CARDIOLOGY CLINIC CONSULTATION REASON FOR CONSULT: Chest pain, family history of CAD/CHF PRIMARY CARE PHYSICIAN: Marquis Henning History of Present Illness Nichol Lowe is an extremely pleasant 62 year old female here as a new patient to establish care. I also see several of her other family members in clinic. Her past medical history is significant for only mild hypertension and dyslipidemia, though for many years she has struggled with paroxysmal nonexertional chest pain. Her family history is significant for her father having a heart attackat age 40 and undergoing multivessel CABG at age 45, as well as both of her paternal grandparents having heart disease. In addition, her younger brother was diagnosed with heart failure (apparently nonischemic) in his early 60s patient is a never smoker, though her relatives with heart disease werealso not smokers. Patient does not drink alcohol or use illicit drugs. She is very active throughout the day and also exercises on the treadmill for 20-30 minutes most days of the week. Symptomatically, her biggest issue is left-sided chest discomfort which is generally not exertionalin nature. The frequency of the chest pain waxes and wanes, going back several decades. Sometimes it gets so severe that she wonders if she should go into the hospital. Her younger brother was unfortunately recently diagnosed with heart failure, which apparently is nonischemic in nature. She is notentirely sure what this heart failure was attributed to. She saw her primary care physician in August 2022 and at that time her lipid panel was slightly worse than before, and it was recommended that she start Crestor 5 mg daily. However, patient reports that she deals with chronic aches and pains particularly in her joints anyways, and she was worried about the potential side effects, so she has not started this yet. Finally, her blood pressure is elevated in clinic today, but she reports that it is always elevated in clinic, but when she checks it at home, it is typically around 120/70 Her most recent outside labs are from 08/01/2022, and show a hemoglobin of 12.8, normal electrolytes, normal renal function, total cholesterol 207, HDL 48, LDL 137, and triglycerides 109. I personally reviewed her outside EKG from 2021, which showed normal sinus rhythm with no ischemic changes. Her most recent echocardiogram was an exercise stress echo from 05/17/2025, where she exercised for 12 minutes and 23 seconds on a Kory protocol, achieving 17 minutes, with no echo evidence of exercise-induced ischemia. The summary describes ischemic EKG changes, but while I cannot see the actualtracings, the details of the report describes only [address] segment depression in the inferior and lateral leads, which is at most equivocal for ischemia and probably negative. Finally, her coronary CTA from 02/09/2011 showed normal coronary arteries with no plaque, calcium score of 0, and normal aortic dimensions. Assessment & Plan 1. Atypical, primarily nonexertional chest pain, inpatient with family history of premature CAD, would classify as low/low-intermediate risk for obstructive CAD 2. Hypertension, well controlled at home 3. Mild dyslipidemia 4. Family history of premature CAD 5. Family history of nonischemic cardiomyopathy It was a pleasure to meet with Nichol in clinic today. We discussed her symptoms and family history in detail today. I think it is excellent that she wishes to make sure that she stays on top of her health given her family history. As it has now been 12 years since her last anatomic assessment in 2010, I think that a coronary CTA would be appropriate for both evaluation of her chest pain, but alsoto assess for more mild nonobstructive coronary disease and whether or not she would benefit from medical therapy with aspirin and statin. In addition, given her family history of nonischemic cardiomyopathy as well, I think that we should repeat an echocardiogram to reassess for this, as it has nowbeen 7 years since her last echo. Based on the results of these tests, we can meet back up and decide on any further testing or management as needed. -Coronary CTA -TTE -Final decision on aspirin/statin necessity based on above testing -Continue atenolol at present dose Follow-up: 1 month to discuss above test results On the date of the patient's visit, I spent a total of 65 minutes reviewing the patient's chart; interviewing, examining, and counseling the patient; coordinating with other providers as necessary, entering orders, and documenting in the medical chart. Yogesh Ovalle MD Interventional Cardiology October 19, 2022 Medications Current Outpatient Medications Medication ??? atenolol (TENORMIN) 50 MG tablet ??? cholecalciferol (VITAMIN D3) 25 mcg (1000 units) capsule ??? Lactobacillus (PROBIOTIC ACIDOPHILUS PO) ??? Ascorbic Acid (VITAMIN C PO) ??? GMDWCWF-HFCVRGETX-ONCXABT D PO ??? Fish Oil-Cholecalciferol (FISH OIL + D3 PO) ??? multivitamin w/minerals (THERA-VIT-M) tablet No current facility-administered medications for this visit. Allergies Allergies Allergen Reactions ??? Amoxicillin PCN is ok ??? Erythromycin ??? Sulfa Drugs ??? Ranitidine Rash Physical Exam BP: (!) 150/88 Pulse: 58 SpO2: 99 % Vital Signs with Ranges Pulse: [58] 58 BP: (150)/(88) 150/88 SpO2: [99 %] 99 % 109 lbs 9.6 oz Constitutional: Well-appearing, no acute distress Respiratory: Normal respiratory effort, CTAB Cardiovascular: RRR, no m/r/g. JVP < 7 cm H2O. There is no LE edema. Normal carotid upstrokes, no carotid bruits. 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 (H) Family history of ischemic heart disease Expected: 11/16/2022 (Approximate), Expires: 10/19/2023 documented as of this encounter Results * ECHO COMPLETE (11/16/2022 8:02 AM CDT) LVEF 55-60% CARDIOLOGY RESULTS Anatomical Region Laterality Modality Echocardiography 11/16/2022 6:33 AM CDT Narrative 11/16/2022 9:28 AM CDT [id number]^YVROSE^YOGESH^HOWIE [facility] Echocardiography Laboratory [address] [place] [address] Name: NICHOL LOWE : 1960 Study Date: 11/16/2022 06:33 AM Age: 62 yrs Gender: Female Patient Location: [facility] Reason For Study: Coronary artery disease involving upper [place] coronary artery Ordering Physician: YOGESH OVALLE Referring [...] Procedure Note Cedric Faith MD - 11/16/2022 [id number]^YVROSE^YOGESH^HOWIE [facility] Echocardiography Laboratory [address] [place] [address] Name: NICHOL LOWE : 1960 Study Date: 11/16/2022 06:33 AM Age: 62 yrs Gender: Female Patient Location: [facility] Reason For Study: Coronary artery disease involving upper [place] coronaryartery Ordering Physician: YOGESH OVALLE Referring Physician: YOGESH OVALLE Performed By: [facility] Mary Sorto BSA: 1.5 m2 Height: 65 [...] Yogesh Ovalle MD CV ECHO ORDERAB LES * CTA Angiogram coronary artery (10/31/2022 12:37 PM ACCOUNTING ADVISORY SERVICES MANAGER) Anatomical Region Laterality Modality Cardio, SUBRAD CT BODY, UMP CT CHEST, RAD CT Computed Tomography Impressions 10/31/2022 2:32 PM ACCOUNTING ADVISORY SERVICES MANAGER IMPRESSION: 1. Total Agatston score 3.32, placing [...] incidental noncardiac findings that will follow separately. TYLER BUSBY MD Narrative 10/31/2022 2:32 PM ACCOUNTING ADVISORY SERVICES MANAGER Procedure: CT ANGIO CORONARY ARTERY Examination Date: [...] Images were reconstructed and analyzed on a Shopliment workstation. Scan protocol was optimized to minimize radiation exposure. The total radiation exposure including calcium score was calculated to be 74 DLP, and 1.48 mSv. Procedure Note Tyler Busby MD - 10/31/2022 Procedure: CT ANGIO [...] Images were reconstructed and analyzed on a Shopliment workstation. Scan protocol was optimized to minimize [...] incidental noncardiac findings that will follow separately. TYLER BUSBY MD Yogesh Ovalle MD IMG CT ORDERABL ES documented in this encounter Visit Diagnoses Diagnosis Coronary artery disease involving upper [place] coronary artery of upper [place] heart with other form of angina pectoris (H24)- Primary Family history of ischemic heart disease Mixed hyperlipidemia Essential hypertension Unspecified essential hypertension Coronary artery disease involving [place] coronary artery of [place] heart with other form of angina pectoris (H24) Family history of ischemic heart disease Coronary artery disease involving [place] coronary artery of [place] heart with other form of angina pectoris (H24) Family history of ischemic heart disease documented in this encounter Additional Health Concerns Assessment Noted Time PHQ-9 Depression Total Score: 0 07/14/20 16 7:17 AM ACCOUNTING ADVISORY SERVICES MANAGER documented as of this encounter Care Teams Pool Hall Inspector Relationship Specialty Start Date End Date Marquis Henning MD [facility] [address] [place] [address] PCP - General Family Medicine 10/03/22 Yogesh Ovalle MD [address] [place] [address] Cardiovascular Disease 10/03/22 documented as of this encounter
--- OUTSIDE RECORDS SUMMARY | 2023-09-14 11:45 | XMS_ITS | Clinical Summary ---
Author Name Unknown Organization [employer] Address [place], [place] [address] Care Team Providers Care Mop Maker Name Role Phone Hugo, Margo Geiger MD Primary Care Provider Allergies Active Allergy Reactions Criticality Noted Date Comments Amoxicillin 02/20/2007 PCN is ok Erythromycin 02/20/2007 Sulfa (Sulfonamide Antibiotics) 02/02 Ranitidine Rash 02/20/2007 Medications Medication Sig Dispensed Refills Start Date End Date Status cholecalciferol (VITAMIN D) 1,000 unit tablet Take 1 tablet by mouth once daily. 0 02/07/2011 Active lactobacillus rhamnosus, GG, (PROBIOTIC) 10 billion cell capsule Take 1 capsule by mouth once daily. 0 02/07/2011 Active atenolol (TENORMIN) 50 mg tabletIndications:H TN (hypertension) Take 1 tablet by mouth once daily. 05/24/2016 This Rx replaces all other Rxs for this medication 90 tablet 1 11/23/2016 Active omeprazole (PRILOSEC) 20 mg Delayed-Release capsuleIndications: Gastroesophageal reflux disease, unspecified whether esophagitis present Take 1 capsule by mouth once daily before a meal. 90 capsule 1 06/07/2020 Active Active Problems Problem Noted Date Diagnosed Date Cyclical neutropenia 11/05/2015 Menopausal state 06/01/2014 Systolic hypertension 06/01/2014 Recurrent cystitis 09/02/2013 Uterine fibroid 04/04/2012 Multinodular thyroid 04/04/2012 Overview: Her nodules have been stable for 5 years as of 06/09/2020. No further scheduled ultrasounds are recommended per Radiology. Haile Coronel MD signed electronically .................... 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 pylori infection 05/25/2009 04/04/20 12 Overview: Untreated 05/25/2009 Routine general medical exam ination at a health care facility 04/04/2012 Overview: Pap:02/23/06 Mammo:unknown Colonoscopy:unknown Bone density:unknown Lipids:01/10/01 Total cholesterol: 162 HDL: 39 LDL: 104 Triglycerides: 97 Last Td: was suppose to be when patient returned for mammo in 2005, no record in chart of either. Encounters Date Type Department Care Team Description 08/15/2023 Lab Requisition [facility] [phone] Deedee Galo MD from Last 3 Months Family History Medical History Relation Name Comments Good Health Brother 5 Good Health Brother 6 Good Health Brother 7 Good Health Brother 8 Good Health Daughter 3 Good Health Daughter 4 Heart Disease Father First PA at ag e 40, CABG later. aeg 65 CHF Hypertension Father Cancer-breast Maternal Aunt Diabetes Mother Hypertension Mother Heart Disease Other grandfather an d grandmother Cancer-colon Sister 2 Terminal Good Health Son 2 Relation Name Status Comments Brother 1 Alive Brother 2 Alive Brother 3 Alive Brother 4 Alive Brother 5 Brother 6 Brother 7 Brother 8 Daughter 1 Lien Alive year 1976 Daughter 2 Razia Alive year 1977 Daughter 3 Daughter 4 Father (Age 65) heart dise ase; first PA 40 Maternal Aunt Mother Alive Other Sister 1 Alive Sister 2 Son 1 Alive Son 2 Social History Tobacco Use Types Packs/Day Years Used Date Smoking Tobacco: Never Smokeless Tobacco: Never Tobacco Cessation:Counseling Given: Yes Alcohol Use Standard Drinks/Week Comments No 0 (1 standard drink = 0.6 oz pur e alcohol) PHQ-2 Answer Date Recorded PHQ-2 TOTAL SCORE 0 06/07/2020 Social Connections Answer Date Recorded Frequency of Communication with Friends and Fami ly Not on file 08/25/2021 Financial Resource Strain Answer Date R ecorded Difficulty of Paying Living Expenses Not on file 08/25/2021 Difficulty of Paying Living Expenses Not on file 08/25/2021 Sex and Gender Information Value Date Recorded Sex Assigned at Not on file Gender Identity Not on file Sexual Orientation Not on file Obstetrics History Para Term AB IAB SAB Ectopic Multiple Livin g Live Births 3 3 3 Date Outcome GA Total Labor Labor/2nd/3rd Weight Sex Delivery Anes PTL Kristie A1 A5 Name Cl in Para Para Para Last Filed Vital Signs Vital Sign Reading Time Taken Comments Blood Pressure 149/74 01/13/2021 2:28 PM CDT Pulse 76 01/13/2021 2:28 PM CDT Temperature 37.1 ??C (98.7 ??F) 01/13/2021 2:28 PM CD T Respiratory Rate - - Oxygen Saturation 100% 01/13/2021 2:28 PM CDT Inhaled Oxygen Concentration - - Weight 49 kg (108 lb) 01/13/2021 2:28 PM CDT Height 164.6 cm (5' 4.8) 06/04/2020 11:05 AM CD T Body Mass Index 18.08 06/04/2020 11:05 AM CDT Plan of Treatment Health Maintenance Due Date Last Done Comments COVID-19 vaccine series (#1) 01/19/1959 Tdap 1969 HIV for age 15-65 1973 Hepatitis C screening for ag e 18-79 1976 Tetanus booster 1978 Zoster (shingles) series for age 50+ (1 of 2) 2008 Mammogram for age 45-75 08/21/2018 08/21/20 17, 08/07/2016, 08/03/2015, Additional history exists BMI (ht and wt on same day) for age 18+ 06/04/2021 06/04/2020, 08/07/2016, 11/05/2015 Depression screening for age 12+ 06/09/2021 06/09/2020, 06/07/2020, 06/04/2020, Additional history exists Colonoscopy through age 75 06/28/202106/28, 06/28/2016, 06/23/2008 Lipids for age 45-75 08/23/2021 08/23/2016, 06/30/2014, 12/30/2010, Additional history exists DEXA/DXA scan for age 65+ 2023 07/02/2007 Influenza for age 65+ 2023 Pneumococcal series for age 65+ (1 of 1 - PCV) 2023 Pap test for age 21-65 08/15/2026 , 08/15/2023, 12/20/2010 (Postponed), Additional history exists Procedures Procedure Name Priority Date/Time Associated Diagnosis Comments LAB TRACKING EVENT Routine 08/15/2023 10 :26 AM DIRECTOR ELECTRICAL ENGINEERING FORGING DIES FINAL FINISHER THIN PREP PAP SCREEN IMAGED Routine 08/15/2023 10:26 AM DIRECTOR ELECTRICAL ENGINEERING HPV THIN PREP Routine 08/15/2023 10:26 AM DIRECTOR ELECTRICAL ENGINEERING from Last 3 Months Results * LAB TRACKING EVENT (08/15/2023 10:26 AM DIRECTOR ELECTRICAL ENGINEERING) Other (Other) Client Collect / Unknown 08/15/2023 10:26 AM DIRECTOR ELECTRICAL ENGINEERING 08/15/2023 6:37 PM DIRECTOR ELECTRICAL ENGINEERING Deedee Galo MD LAB BILL ONLY [facility] [address] [place] [address], * FORGING DIES FINAL FINISHER THIN PREP PAP SCREEN IMAGED (08/15/2023 10:26 AM DIRECTOR ELECTRICAL ENGINEERING) Case Report Gynecologic Cytology Report ? Case: [id number] ? Authorizing Provider: ??Deedee Galo MD ?? Collected: ? 08/15/2023 1026 ? Ordering Location: ? [facility] ?Received: ?08/16/2023 1237 ? First Screen: ?Eugene Culp ? Rescreen: ?Bacadarsh, Harmonye ? Specimen: ?FORGING DIES FINAL FINISHER ThinPrep Vial Screening, Cervical ? 08/24/2023 11:22 AM [facility] INTERPRETATION/ RESULT NEGATIVE FOR INTRAEPITHELIAL LESION OR MALIGNANCY (NIL) (none) 08/24/2023 11:22 AM [facility] IMEN ADEQUACY Satisfactory for evaluation Endocervical cells cannot be evaluated due to severe atrophy Scant cellularity 08/24/2023 11:22 AM [facility] HPV REQUEST HPV and PAP 08/24/2023 11:22 AM DIRECTOR ELECTRICAL ENGINEERING [facility] Last Pap Date 07/18/2016 08/24/2023 11:22 AM [facility] Last Pap Result 11:22 AM [facility] Comment:unknown Abnormal Pap or [place] Bx in last 5 years No 08/24/2023 11:22 AM [facility] Menstrual Status Postmenopausal 08/24/2023 11:22 AM [facility] [place] Bx Done Today No 08/24/2023 11:22 AM DIRECTOR ELECTRICAL ENGINEERING [facility] Additional Information 08/24/2023 11:22 AM [facility] Comment: Interpreted at [facility] [address] [facility] [place] [address], [place] [address] Automated Review Successful 08/24/2023 11:22 AM [facility] Comment:Specimen processed s uccessfully by automated broadcast supervisor device, ThinPrep Imaging System, [employer] ANCILLARY TESTING FORGING DIES FINAL FINISHER HPV Ordered, Please see separate report 08/24/2023 11:22 AM [facility] Note The pap test is a screening technique, not a diagnostic procedure. It is used primarily to screen for squamous cancers and precursor lesions. Published studies have shown that it is subject to both false negative and false positive results. The pap test should not be used as the sole means to diagnose or exclude pre-malignant and malignant lesions. 08/24/2023 11:22 AM [address] [facility] Other (Cervical) 08/15/2023 10:26 AM DIRECTOR ELECTRICAL ENGINEERING 08/16/2023 12:37 PM DIRECTOR ELECTRICAL ENGINEERING Deedee Galo MD PATHOLOGY/CYTOLOG Y [facility] [address] [place] [address], * HPV HIGH RISK (08/15/2023 10:26 AM DIRECTOR ELECTRICAL ENGINEERING) TYPE 16 Negative Negative 08/20/2023 11:31 AM DIRECTOR ELECTRICAL ENGINEERING [facility] TYPE 18 Negative Negative 08/20/2023 11:31 AM DIRECTOR ELECTRICAL ENGINEERING [facility] OTHER HIGH RISK TYPES Negative Negative 08/20/2023 11:31 AM DIRECTOR ELECTRICAL ENGINEERING [facility] Other (Cervical) 08/15/2023 10:26 AM DIRECTOR ELECTRICAL ENGINEERING 08/16/2023 12:37 PM DIRECTOR ELECTRICAL ENGINEERING Narrative [facility] - 08/20/2023 11:31 AM DIRECTOR ELECTRICAL ENGINEERING HPV types 16, 18, 31, 33, 35, 39, 45, 51, 52, 56, 58, 59, 66 and 68 DNA were undetectable or below the pre-set threshold. Methodology: Jamil Mar 4800 HPV Test Deedee Galo MD MICROBIOLOGY [facility] [address] [place] [address], from Last 3 Months Care Teams Mop Maker Relationship Specialty Start Date End Date Margo Arias MD [address] [place], [place] [id number] PCP - General Family Practice 01/13/21
--- NOTE | 2023-09-14 12:49 | CRLHL7_ITS ---
For Patients: As a result of the Century Cures Act, medical imaging exams and procedure reports are released immediately into your electronic medical record. You may view this report before your referring provider. If you have questions, please contact your health care provider. INDICATION: RT KNEE SWELLING TECHNIQUE: Ultrasound venous duplex lower right extremity. Compression venous exam was performed using barcenas-scale, color Doppler, and spectral Doppler analysis. COMPARISON: None. FINDINGS: Deep veins: Sonographic imaging demonstrates the right common femoral, deep femoral, superficial femoral, popliteal, posterior tibial, peroneal and the contralateral left common femoral veins to be fully compressible with normal color Doppler blood flow. Superficial veins: Greater saphenous vein is fully compressible. No popliteal cyst. IMPRESSION: Normal right lower extremity venous ultrasound, no sign of deep venous thrombosis. Dictated by Nathan Gutierres MD @ 09/14/2023 2:01:14 PM (Electronically Signed)
== END 2023-09-14 14:13 | disposition home or self-care (01) ==
PROVIDERS: Emergency Provider Student in an Organized Health Care Education/Training Program; PCP Family Medicine
DX: M25.461 Effusion, right knee (principal); M25.561 Pain in right knee
CPT/HCPCS: 73564; 93971; 99282; 99283; 99284

== ENCOUNTER 2025-05-07 13:28 | Outpatient (CLI) | payer MEDICARE, BC, SELFPAY ==
[2025-05-07 22:22] LABS: Bacterial Vaginosis* Negative (Negative); Candida glab/krus NOT DETECTED (No Detected)
== END 2025-05-07 13:29 | disposition home or self-care (01) ==
PROVIDERS: PCP Family Medicine; Visit Provider Obstetrics & Gynecology
DX: N94.89 Other specified conditions associated with female genital organs and menstrual cycle (principal); R30.0 Dysuria
CPT/HCPCS: 81513; 87481; 87661

== ENCOUNTER 2025-05-08 10:03 | Outpatient (CLI) | payer MEDICARE, BC, SELFPAY | END 2025-05-08 10:04 | disposition home or self-care (01) | LOC: NFLDREF 05-13 11:55 | PROVIDERS: PCP Family Medicine; Referring Provider Family Medicine; Visit Provider Obstetrics & Gynecology | DX: R30.0 Dysuria (principal) | CPT/HCPCS: 87086 ==

== ENCOUNTER 2025-05-26 12:54 | Outpatient (CLI) | payer MEDICARE, BC, SELFPAY ==
--- NOTE | 2025-05-26 13:00 | CRLHL7_ITS ---
For Patients: As a result of the Century Cures Act, medical imaging exams and procedure reports are released immediately into your electronic medical record. You may view this report before your referring provider. If you have questions, please contact your health care provider. INDICATION: Vaginal irritation. COMPARISON: None. TECHNIQUE: 2D barcenas-scale and color Doppler images were acquired of the pelvis using a transabdominal approach. Patient declined transvaginal imaging. FINDINGS: Sonographic images demonstrate a normal size and smooth outer contour of the uterus. Uterus measures 8.2 cm in length by 3.1 cm in AP diameter by 6.3 cm in transverse dimension. Left uterine fibroid measures 2.2 x 1.5 x 2.2 cm. The endometrium measures 4.9 millimeters. Endometrial fluid noted. The right ovary measures 2.6 x 1.8 x 1.5 cm in size and the left ovary measures 2.5 x 1.4 x 1.6 cm. The ovaries demonstrate normal arterial and venous blood flow on color Doppler analysis. There are no suspicious fluid collections within the cul-de-sac. Benign left ovarian cyst measures 1.5 x 1.0 x 1.2 cm. IMPRESSION: Endometrial thickness 4.9 millimeters. Mild endometrial fluid. Left uterine intramural fibroid measures 2.2 cm. Simple cyst or dominant follicle left ovary measures 1.5 cm. Dictated by Bairon Scott MD @ 05/26/2025 3:51:41 PM (Electronically Signed)
== END 2025-05-26 12:55 | disposition home or self-care (01) ==
LOC: US 12:55
PROVIDERS: PCP Family Medicine; Visit Provider Obstetrics & Gynecology
DX: N89.8 Other specified noninflammatory disorders of vagina (principal); R93.89 Abnormal findings on diagnostic imaging of other specified body structures; D25.1 Intramural leiomyoma of uterus; N83.202 Unspecified ovarian cyst, left side
CPT/HCPCS: 76856

== ENCOUNTER 2025-08-03 12:53 | Outpatient (CLI) | payer MEDICARE, BC, SELFPAY ==
--- NOTE | 2025-08-03 13:00 | CRLHL7_ITS ---
For Patients: As a result of the Century Cures Act, medical imaging exams and procedure reports are released immediately into your electronic medical record. You may view this report before your referring provider. If you have questions, please contact your health care provider. INDICATION: Follow-up fluid in endometrium COMPARISON: 05/26/2025 TECHNIQUE: 2D barcenas-scale and color Doppler images were acquired of the pelvis using a transabdominal approach. Patient declined transvaginal imaging today. FINDINGS: Uterine fibroid again noted measuring 2.2 x 1.9 x 2.4 cm. Uterus measures 7.9 cm in length by 2.7 cm in AP diameter by 4.1 cm in transverse dimension. Endometrium measures 3 millimeters. Mild endometrial fluid is present. This is not significantly changed. The right ovary measures 1.8 x 1.4 x 1.5 cm in size and the left ovary measures 1.9 x 1.3 x 2.2 cm. The ovaries demonstrate normal arterial and venous blood flow on color Doppler analysis. There are no suspicious fluid collections within the cul-de-sac. Simple left ovarian cyst measures 1.2 x 1.0 x 1.1 cm, not significantly changed. IMPRESSION: Endometrial thickness 3 millimeters. Mild endometrial fluid. No significant change. Dictated by Bairon Scott MD @ 08/03/2025 4:03:43 PM (Electronically Signed)
== END 2025-08-03 12:54 | disposition home or self-care (01) ==
LOC: US 12:54
PROVIDERS: PCP Family Medicine; Visit Provider Obstetrics & Gynecology
DX: N89.8 Other specified noninflammatory disorders of vagina (principal); D25.9 Leiomyoma of uterus, unspecified; R93.89 Abnormal findings on diagnostic imaging of other specified body structures
CPT/HCPCS: 76856